=== PATIENT | male | born 1990 ===

== ENCOUNTER 2016-06-17 14:54 | Emergency (ER) | payer MEDICAID ==
[2016-06-17 14:54] VITALS: BMI 25.1
[2016-06-17 15:01] VITALS: BP 109/70; PULSE 86; RESP 18; TEMP 98.6; O2SAT 99
[2016-06-17] MEDS ORDERED: Naproxen 500 MG TAB PO ONE ×2 (15:06→15:09)
--- NOTE | 2016-06-17 15:09 | ED PDOC ---
HPI: General Adult Time Seen by Provider: 06/17/16 15:01 Chief Complaint (Nursing): Flu-like Symptoms Chief Complaint (Provider): Flu like symptoms History Per: Patient Additional Complaint(s): Pt. states since yesterday pt. has had cough, sore throat, and bodyaches. Has been taking Advil (last dose at 1200 yesterday). Pt. also took a muscle relaxant from his sister (pt. does not know the name). Denies fever, sick contacts, recent travel, SOB, chest pain, hemoptysis, abdominal pain. Past Medical History Reviewed: Historical Data, Nursing Documentation, Vital Signs Vital Signs: Last Vital Signs Temp 98.6 F 06/17/16 14:58 Pulse 86 06/17/16 14:58 Resp 18 06/17/16 14:58 BP 109/70 06/17/16 14:58 Pulse Ox 99 06/17/16 15:10 - Medical History PMH: Asthma Denies: Diabetes, Hepatitis, HIV, HTN, Seizures, Sexually Transmitted Disease - Family History Family History: States: No Known Family Hx - Immunization History Hx Tetanus Toxoid Vaccination: No Hx Influenza Vaccination: No Hx Pneumococcal Vaccination: No - Home Medications Home Medications: Ambulatory Orders Medication Instructions Recorded Benzonatate [Tessalon Perle] 100 mg PO Q8 PRN #30 capsule 06/17/16 Naproxen [Naprosyn] 500 mg PO BID PRN #30 tab 06/17/16 - Allergies Allergies/Adverse Reactions: Allergies Allergy/AdvReac Type Severity Reaction Status Date / Time No Known Allergies Allergy Verified 06/16/16 21:40 Review of Systems ROS Statement: Except As Marked, All Systems Reviewed And Found Negative Constitutional: Positive for: Malaise ENT: Positive for: Throat Pain Respiratory: Positive for: Cough Physical Exam - Reviewed Nursing Documentation Reviewed: Yes Vital Signs Reviewed: Yes - Physical Exam Appears: Positive for: Well, Non-toxic, No Acute Distress Head Exam: Positive for: ATRAUMATIC, NORMAL INSPECTION, NORMOCEPHALIC Skin: Positive for: Normal Color, Warm. Negative for: Rash Eye Exam: Positive for: EOMI, Normal appearance, PERRL ENT: Positive for: TM Is/Are (WNL b/l), Pharyngeal Erythema. Negative for: Tonsillar Exudate, Tonsillar Swelling Neck: Positive for: Normal, Painless ROM Cardiovascular/Chest: Positive for: Regular Rate, Rhythm Respiratory: Positive for: Normal Breath Sounds. Negative for: Rales, Wheezing Gastrointestinal/Abdominal: Positive for: Normal Exam, Soft. Negative for: Tenderness Back: Positive for: Normal Inspection Extremity: Positive for: Normal ROM Neurologic/Psych: Positive for: Alert, Oriented - ECG O2 Sat by Pulse Oximetry: 99 - Progress ED Course And Treament: Rapid flu and rapid strep ordered. Naproxen PO given. Rapid strep and rapid flu: negative. Disposition - Clinical Impression Clinical Impression: Upper respiratory infection - Patient ED Disposition Is Patient to be Admitted: No - Disposition Referrals: [facility] [Outside] Disposition: Routine/Home Disposition Time: 16:12 Condition: STABLE Additional Instructions: Drink plenty of fluids. Rest. Prescriptions: Naproxen [Naprosyn] 500 mg PO BID PRN #30 tab PRN Reason: Pain Benzonatate [Tessalon Perle] 100 mg PO Q8 PRN #30 capsule PRN Reason: Cough Instructions: Upper Respiratory Infection (ED)
== END 2016-06-17 16:27 | disposition home or self-care (01) ==
LOC: H.ER 14:54
DX: J06.9 Acute upper respiratory infection, unspecified (principal); J02.9 Acute pharyngitis, unspecified; R05 Cough; J45.909 Unspecified asthma, uncomplicated

== ENCOUNTER 2017-02-27 07:20 | Emergency (ER) | payer OTHER ==
[2017-02-27 07:22] VITALS: BMI 30.4
[2017-02-27 07:23] VITALS: BP 145/90; PULSE 99; RESP 20; TEMP 96.5; O2SAT 99
--- NOTE | 2017-02-27 07:54 | ED PDOC ---
HPI: Psych/Substance Abuse Time Seen by Provider: 02/27/17 07:42 Chief Complaint (Nursing): Alcohol Ingestion Chief Complaint (Provider): Alcohol Ingestion ED Caveat: Intoxicated History Per: Patient History/Exam Limitations: intoxication Suicide/Self Injury Attempted (Context): None Modifying Factor(s): Alcohol Additional Complaint(s): 26 year old male brought in by EMS and brought to ED for alcohol intoxication. EMS states patient called for an ambulance for vomiting after a night of drinking. Upon ED arrival vomiting has resolved and patient is sleeping. PCP: Unknown Past Medical History Reviewed: Historical Data, Nursing Documentation, Vital Signs Vital Signs: Last Vital Signs Temp 96.5 F L 02/27/17 07:22 Pulse 99 H 02/27/17 07:22 Resp 20 02/27/17 07:22 BP 145/90 02/27/17 07:22 Pulse Ox 99 02/27/17 07:22 - Medical History PMH: Asthma Denies: Diabetes, Hepatitis, HIV, HTN, Seizures, Sexually Transmitted Disease - Surgical History Surgical History: No Surg Hx - Family History Family History: States: Unknown Family Hx - Social History Alcohol: > 2 Drinks/Day - Immunization History Hx Tetanus Toxoid Vaccination: No Hx Influenza Vaccination: No Hx Pneumococcal Vaccination: No - Home Medications Home Medications: Ambulatory Orders Medication Instructions Recorded Bacitracin 1 apful EXT TID #30 g 02/22/14 Ibuprofen 600 mg PO Q6H PRN #15 tab 02/22/14 Acetaminophen/Butalbital/Caf 1 tab PO TID PRN #20 tab 12/23/16 [Fioricet] Aspirin 325 mg PO PRN PRN 12/23/16 - Allergies Allergies/Adverse Reactions: Allergies Allergy/AdvReac Type Severity Reaction Status Date / Time No Known Allergies Allergy Verified 12/23/16 08:41 Review of Systems ROS Statement: Except As Marked, All Systems Reviewed And Found Negative Physical Exam - Reviewed Nursing Documentation Reviewed: Yes Vital Signs Reviewed: Yes - Physical Exam Appears: Positive for: Well, Non-toxic, No Acute Distress Head Exam: Positive for: ATRAUMATIC, NORMOCEPHALIC Skin: Positive for: Normal Color, Warm, Dry Eye Exam: Positive for: EOMI, Normal appearance, PERRL ENT: Positive for: Normal ENT Inspection Neck: Positive for: Normal, Painless ROM, Supple Cardiovascular/Chest: Positive for: Regular Rate, Rhythm. Negative for: Murmur Respiratory: Positive for: Normal Breath Sounds. Negative for: Respiratory Distress Gastrointestinal/Abdominal: Positive for: Normal Exam, Soft. Negative for: Tenderness Back: Positive for: Normal Inspection Extremity: Positive for: Normal ROM. Negative for: Deformity Neurologic/Psych: Negative for: Alert (sleepy), Oriented - ECG O2 Sat by Pulse Oximetry: 99 (RA) Pulse Ox Interpretation: Normal - Progress Re-evaluation Time: 11:54 Condition: Re-examined, Improved Medical Decision Making Medical Decision Makin Initial impression: alcohol intoxication Initial plan: * Observation Scribe Attestation: Documented by Eden Whitman acting as a scribe for Chaka Hermosillo MD. Scribe Attestation: All medical record entries made by the Scribe were at my direction and personally dictated by me. I have reviewed the chart and agree that the record accurately reflects my personal performance of the history, physical exam, medical decision making, and the department course for this patient. I have also personally directed, reviewed, and agree with the discharge instructions and disposition. Disposition - Clinical Impression Clinical Impression: Alcohol abuse with intoxication - Patient ED Disposition Is Patient to be Admitted: No Doctor Will See Patient In The: Office Counseled Patient/Family Regarding: Studies Performed, Diagnosis, Need For Followup - Disposition Referrals: Parveen Burciaga PA [Primary Care Provider] - Disposition: Routine/Home Disposition Time: :54 Condition: GOOD Instructions: Alcohol Intoxication (DC)
== END 2017-02-27 12:38 | disposition home or self-care (01) ==
LOC: SUPCPDRO 07:20 → H.ER 07:20
DX: F10.129 Alcohol abuse with intoxication, unspecified (principal); J45.909 Unspecified asthma, uncomplicated

== ENCOUNTER 2017-12-04 17:10 | Emergency (ER) | payer OTHER ==
[2017-12-04 17:10] VITALS: BMI 30.4
[2017-12-04 17:27] VITALS: BP 139/89; PULSE 73; RESP 19; TEMP 98.4; O2SAT 97
--- NOTE | 2017-12-04 17:35 | ED PDOC ---
Upper Extremity Pain/Injury Chief Complaint (Provider): Right wrist pain History Per: Patient History/Exam Limitations: no limitations Onset/Duration Of Symptoms: Hrs (today) Current Symptoms Are (Timing): Still Present Additional Complaint(s): Kelvin Gonzalez is a 27 year old male, with no significant past medical history, who presents to the emergency department complaining of right wrist pain s/p trip and fall today. Patient states he initially didn't have pain, he went to to work but pain worsened throughout the day. He took 800mg Motrin for symptoms. He denies any other injuries or medical complaints. PMD: Aly Carr <Emma Ward - Last Filed: 12/04/17 18:36> <Nimisha Johnston - Last Filed: 12/08/17 18:38> Time Seen by Provider: 12/04/17 17:19 Chief Complaint (Nursing): Finger,Hand,&Wrist Past Medical History Reviewed: Historical Data, Nursing Documentation, Vital Signs Vital Signs: Last Vital Signs Temp 98.4 F 12/04/17 17:22 Pulse 73 12/04/17 17:22 Resp 19 12/04/17 17:22 BP 139/89 12/04/17 17:22 Pulse Ox 97 12/04/17 17:22 - Medical History PMH: Asthma Denies: Diabetes, Hepatitis, HIV, HTN, Seizures, Sexually Transmitted Disease - Surgical History Surgical History: No Surg Hx - Family History Family History: States: Unknown Family Hx - Immunization History Hx Tetanus Toxoid Vaccination: No Hx Influenza Vaccination: No Hx Pneumococcal Vaccination: No <Emma Ward - Last Filed: 12/04/17 18:36> Vital Signs: Last Vital Signs Temp 98.4 F 12/04/17 17:22 Pulse 73 12/04/17 17:22 Resp 19 12/04/17 17:22 BP 139/89 12/04/17 17:22 Pulse Ox 97 12/04/17 18:49 <Nimisha Johnston - Last Filed: 12/08/17 18:38> - Home Medications Home Medications: Ambulatory Orders Medication Instructions Recorded RX: Bacitracin 1 apful EXT TID #30 g 02/22/14 RX: Ibuprofen 600 mg PO Q6H PRN #15 tab 02/22/14 Acetaminophen/Butalbital/Caf 1 tab PO TID PRN #20 tab 12/23/16 [Fioricet] RX: Aspirin 325 mg PO PRN PRN 12/23/16 oxyCODONE/Acetaminophen [Percocet 1 ea PO Q6H PRN #15 tab 12/04/17 5/325 mg Tab] - Allergies Allergies/Adverse Reactions: Allergies Allergy/AdvReac Type Severity Reaction Status Date / Time No Known Allergies Allergy Verified 12/23/16 08:41 Review of Systems ROS Statement: Except As Marked, All Systems Reviewed And Found Negative Musculoskeletal: Positive for: Hand Pain (right wrist pain) <Emma Ward - Last Filed: 12/04/17 18:36> Physical Exam - Reviewed Nursing Documentation Reviewed: Yes Vital Signs Reviewed: Yes - Physical Exam Appears: Positive for: No Acute Distress Head Exam: Positive for: ATRAUMATIC, NORMOCEPHALIC Skin: Positive for: Normal Color, Warm, Dry Eye Exam: Positive for: Normal appearance Neck: Positive for: Painless ROM Respiratory: Negative for: Respiratory Distress Extremity: Positive for: Normal ROM (upper extremities). Negative for: Tenderness (No point tenderness to right wrist), Deformity (no bony deformity to right wrist), Swelling Neurologic/Psych: Positive for: Alert, Oriented, Gait (steady) <Emma Ward - Last Filed: 12/04/17 18:36> - ECG O2 Sat by Pulse Oximetry: 97 (RA) Pulse Ox Interpretation: Normal <Emma Ward Praneeth - Last Filed: 12/04/17 18:36> Medical Decision Making Medical Decision Making: Time: 17:19 Initial Impression: Wrist joint pain Initial Plan: --Tylenol 325 mg tab 650 mg PO --Hand right 3 views [RAD] --Wrist, right 3 views [RAD] 18:07 Wrist X-Ray FINDINGS: BONES: Nondisplaced scaphoid waist fracture. JOINTS: Widened scapholunate interval. SOFT TISSUES: Circumferential wrist soft tissue swelling. OTHER FINDINGS: None. IMPRESSION: Nondisplaced scaphoid waist fracture. Widened scapholunate interval compatible with ligamentous injury. MRI of the wrist can be obtained for further evaluation as clinically warranted. 18:07 Hand X-Ray FINDINGS: BONES: Nondisplaced scaphoid waist fracture. JOINTS: Widened scapholunate interval. SOFT TISSUES: Circumferential wrist soft tissue swelling. OTHER FINDINGS: None. IMPRESSION: Nondisplaced scaphoid waist fracture. Widened scapholunate interval compatible with ligamentous injury. MRI of the wrist can be obtained for further evaluation as clinically warranted. Scribe Attestation: Documented by Chicho Luis, acting as a scribe for Emma Ward PA-C Provider Scribe Attestation: All medical record entries made by the Scribe were at my direction and personally dictated by me. I have reviewed the chart and agree that the record accurately reflects my personal performance of the history, physical exam, medical decision making, and the department course for this patient. I have also personally directed, reviewed, and agree with the discharge instructions and disposition. <Emma Ward - Last Filed: 12/04/17 18:36> Disposition - Patient ED Disposition Is Patient to be Admitted: No - Disposition Disposition: Routine/Home Disposition Time: 18:36 <Emma Ward - Last Filed: 12/04/17 18:36> <Nimisha Johnston - Last Filed: 12/08/17 18:38> - Clinical Impression Clinical Impression: Scaphoid fracture - Disposition Referrals: Aly Carr MD [Primary Care Provider] - Pankaj Andrews MD [Medical Doctor] - Condition: STABLE Prescriptions: oxyCODONE/Acetaminophen [Percocet 5/325 mg Tab] 1 ea PO Q6H PRN #15 tab PRN Reason: Pain, Severe (8-10) Instructions: Wrist Fracture (DC) Forms: [employer] ([place]) Addendum Addendum: 12/08/17 18:38 reviewed chart and agree with PA assessment. <Nimisha Johnston - Last Filed: 12/08/17 18:38>
--- NOTE | 2017-12-04 18:10 | RAD ---
Date of service: 12/04/2017 PROCEDURE: Right Wrist Radiographs Right hand radiographs. HISTORY: pain, FOOSH COMPARISON: None. FINDINGS: BONES: Nondisplaced scaphoid waist fracture. JOINTS: Widened scapholunate interval. SOFT TISSUES: Circumferential wrist soft tissue swelling. OTHER FINDINGS: None. IMPRESSION: Nondisplaced scaphoid waist fracture. Widened scapholunate interval compatible with ligamentous injury. MRI of the wrist can be obtained for further evaluation as clinically warranted.
== END 2017-12-04 19:01 | disposition home or self-care (01) ==
LOC: H.ER 17:10 → SUPCPDRO 17:10 → H.ER 19:01
DX: S62.001A Unspecified fracture of navicular [scaphoid] bone of right wrist, initial encounter for closed fracture (principal); W19.XXXA Unspecified fall, initial encounter; Y92.89 Other specified places as the place of occurrence of the external cause

== ENCOUNTER 2018-05-08 00:56 | Emergency (ER) | payer SELFPAY ==
[2018-05-08 01:16] VITALS: BMI 33.9
[2018-05-08 01:22] VITALS: RESP 18
--- NOTE | 2018-05-08 02:25 | ED PDOC ---
HPI: Influenza Time Seen by Provider: 05/08/18 01:00 Chief Complaint: Cough, Cold, Congestion Chief Complaint (Provider): Fever History Per: Patient Exam Limitations: no limitations Symptoms include: fever, bodyaches. denies: vomiting, diarrhea Additional complaint(s):: 27 y/o male presents to the ED complaining of fever and body aches for x1 day. Patient denies taking his flu shot. He also reports having sore throat and chills. Patient denies vomiting or diarrhea. No other medical complaints. Patient states he hasn't seen his PMD in a long time. PMD: Aly Reese Past Medical History Reviewed: Historical Data, Nursing Documentation, Vital Signs Vital Signs: Last Vital Signs Temp 100.8 F H 05/08/18 01:16 Pulse 81 05/08/18 01:16 Resp 18 05/08/18 01:16 BP 146/96 H 05/08/18 01:16 Pulse Ox 98 05/08/18 01:16 - Medical History PMH: Asthma Denies: Diabetes, Hepatitis, HIV, HTN, Seizures, Sexually Transmitted Disease - Surgical History Surgical History: No Surg Hx - Family History Family History: States: Unknown Family Hx - Social History Current smoker - smoking cessation education provided: Yes Alcohol: > 2 Drinks/Day - Immunization History Hx Tetanus Toxoid Vaccination: No Hx Influenza Vaccination: No Hx Pneumococcal Vaccination: No - Home Medications Home Medications: Ambulatory Orders Medication Instructions Recorded Bacitracin 1 apful EXT TID #30 g 02/22/14 Ibuprofen 600 mg PO Q6H PRN #15 tab 02/22/14 Acetaminophen/Butalbital/Caf 1 tab PO TID PRN #20 tab 12/23/16 [Fioricet] Aspirin 325 mg PO PRN PRN 12/23/16 oxyCODONE/Acetaminophen [Percocet 1 ea PO Q6H PRN #15 tab 12/04/17 5/325 mg Tab] Oseltamivir Cap [Tamiflu] 75 mg PO BID #10 cap 05/08/18 - Allergies Allergies/Adverse Reactions: Allergies Allergy/AdvReac Type Severity Reaction Status Date / Time No Known Allergies Allergy Verified 05/08/18 01:16 Review of Systems ROS Statement: Except As Marked, All Systems Reviewed And Found Negative Constitutional: Positive for: Fever, Chills ENT: Positive for: Throat Pain Gastrointestinal: Negative for: Vomiting, Diarrhea Physical Exam - Reviewed Nursing Documentation Reviewed: Yes Vital Signs Reviewed: Yes - Physical Exam Appears: Positive for: Well, Non-toxic, No Acute Distress Head Exam: Positive for: ATRAUMATIC, NORMAL INSPECTION, NORMOCEPHALIC Skin: Positive for: Normal Color, Warm, DRY Eye Exam: Positive for: EOMI, Normal appearance, PERRL ENT: Positive for: Normal ENT Inspection Neck: Positive for: Normal, Painless ROM Cardiovascular/Chest: Positive for: Regular Rate, Rhythm. Negative for: Murmur Respiratory: Positive for: Normal Breath Sounds. Negative for: Respiratory Distress Gastrointestinal/Abdominal: Positive for: Normal Exam, Soft. Negative for: Tenderness Back: Positive for: Normal Inspection Extremity: Positive for: Normal ROM. Negative for: Pedal Edema, Deformity Neurologic/Psych: Positive for: Alert, Oriented. Negative for: Motor/Sensory Deficits Medical Decision Making Medical Decision Making: Time: 01:53 Initial Impression: Fever ro flu and strep Initial Plan: * Motrin 600 mg * Influenza A B * Rapid strep 03:05 Patient's flu was negative but still giving Tamiflu for symptoms. explained results to pt.. he states he feels improved at this time. . Upon provider reevaluation patient is feeling better, is medically stable, and requires no further treatment in the ED at this time. Patient will be discharged with Rx for Tamiflu Counseling was provided and all questions were answered regarding diagnosis and need for follow up with Clinic. There is agreement to discharge plan. Return if symptoms persist or worsen. Scribe Attestation: Documented by Fred Boston acting as a scribe for Go Trinh MD. Provider Scribe Attestation: :All medical record entries made by the Scribe were at my direction and per sonally dictated by me. I have reviewed the chart and agree that the record accurately reflects my personal performance of the history, physical exam, medical decision making, and the department course for this patient. I have also personally directed, reviewed, and agree with the discharge instructions and disposition. - ECG O2 Sat by Pulse Oximetry: 98 Disposition - Clinical Impression Clinical Impression: Influenza-like symptoms - Patient ED Disposition Is Patient to be Admitted: No Counseled Patient/Family Regarding: Studies Performed, Diagnosis, Need For Followup - Disposition Disposition: Routine/Home Disposition Time: 03:05 Condition: IMPROVED Additional Instructions: follow up w dr reese return to the ED with any worsening or concerning symptoms Prescriptions: Oseltamivir Cap [Tamiflu] 75 mg PO BID #10 cap Instructions: Flu, Adult (DC) Forms: [employer] (Czech), [facility] ED School/Work Excuse
[2018-05-08 03:10] VITALS: BP 130/86; PULSE 76; TEMP 100.1
[2018-05-08 03:25] VITALS: O2SAT 98
== END 2018-05-08 03:40 | disposition home or self-care (01) ==
LOC: H.ER 00:56
DX: J11.1 Influenza due to unidentified influenza virus with other respiratory manifestations (principal)

== ENCOUNTER 2018-06-22 11:38 | Emergency (ER) | payer SELFPAY ==
[2018-06-22 11:53] VITALS: PULSE 80; RESP 18; TEMP 98.6
[2018-06-22 11:54] VITALS: BMI 29.0
[2018-06-22 13:28] LABS: BASO % 0.3 % (0.0-2.0); EOS % 0.1 % (0.0-4.0); HEMOGLOBIN 15.8 g/dL (12.0-18.0); LYMPH # 0.4 K/uL (1.0-4.3); LYMPH % 6.9 % (20.0-40.0); MEAN CELL VOLUME 89.2 fl (80.0-94.0); MEAN CORPUSCULAR HEMOGLOBIN 30.2 pg (27.0-31.0); MEAN CORPUSCULAR HGB CONC 33.9 g/dL (33.0-37.0); MEAN PLATELET VOLUME 8.2 fl (7.2-11.7); MONO # 0.5 K/uL (0.0-0.8); MONO % 8.3 % (0.0-10.0); NEUT # 5.3 K/uL (1.8-7.0); NEUT % 84.4 % (50.0-75.0); NRBC % 0.1 % (0.0-0.0); PLATELET COUNT 190 K/uL (130-400); RBC 5.23 Mil/uL (4.40-5.90); RED CELL DISTRIBUTION WIDTH 13.4 % (11.5-14.5); WHITE BLOOD COUNT 6.3 K/uL (4.8-10.8)
[2018-06-22 13:40] LABS: URINE BACTERIA RARE (<OCC); URINE BILIRUBIN SMALL (NEGATIVE); URINE BLOOD NEGATIVE (NEGATIVE); URINE CLARITY SLIGHTY-CLOUDY (Clear); URINE COLOR AMBER (YELLOW); URINE GLUCOSE (UA) NEG (NEGATIVE); URINE LEUKOCYTE ESTERASE NEG Leu/uL (Negative); URINE PROTEIN 100 mg/dL (NEGATIVE)
[2018-06-22 13:41] LABS: ALB/GLOB RATIO 1.4 (1.0-2.1); ALBUMIN 4.4 g/dL (3.5-5.0); ALT/SGPT 65 U/L (21-72); AST/SGOT 84 U/L (17-59); BLOOD UREA NITROGEN 15 mg/dl (9-20); CALCIUM 8.7 mg/dL (8.4-10.2); GFR NON-AFRICAN AMERICAN > 60
--- NOTE | 2018-06-22 14:01 | RAD ---
Date of service: 06/22/2018 HISTORY: Chest pain COMPARISON: 11/06/2012. TECHNIQUE: Chest PA and lateral FINDINGS: LINES AND TUBES: None. LUNG AND PLEURA: The lungs are well inflated and clear. No pleural effusion or pneumothorax. HEART AND MEDIASTINUM: The heart is not enlarged. No aortic atherosclerotic calcifications present. The hilar and mediastinal contours are within normal limits. SKELETAL STRUCTURES: The bony structures are within normal limits for the patient's age. VISUALIZED UPPER ABDOMEN: Normal. OTHER FINDINGS: None. IMPRESSION: No active pulmonary disease.
--- NOTE | 2018-06-22 14:21 | ED PDOC ---
HPI: Abdomen Time Seen by Provider: 06/22/18 12:00 Chief Complaint (Nursing): Abdominal Pain Chief Complaint (Provider): Abdominal Pain History Per: Patient History/Exam Limitations: no limitations Onset/Duration Of Symptoms: Hrs Additional Complaint(s): 27 y/o male presents to the ED due to mid sternal chest pain since last night. Patient states it is not affected by movement or breathing without exacerbation. He also reports RLQ intermittent abdominal pain with body aches. Patient states he plays basketball and smokes cigars and drinks occasionally. Patient denies fever, chills, or any cough. PMD: Dr. Carr Past Medical History Reviewed: Historical Data, Nursing Documentation, Vital Signs Vital Signs: Last Vital Signs Temp 98.6 F 06/22/18 11:52 Pulse 80 06/22/18 11:52 Resp 18 06/22/18 11:52 BP 138/77 06/22/18 11:52 Pulse Ox 97 06/22/18 11:52 - Medical History PMH: Asthma Denies: Diabetes, Hepatitis, HIV, HTN, Seizures, Sexually Transmitted Disease - Surgical History Surgical History: No Surg Hx - Family History Family History: States: No Known Family Hx, Unknown Family Hx - Social History Current smoker - smoking cessation education provided: Yes Alcohol: Occasional - Immunization History Hx Tetanus Toxoid Vaccination: No Hx Influenza Vaccination: No Hx Pneumococcal Vaccination: No - Home Medications Home Medications: Ambulatory Orders Medication Instructions Recorded Bacitracin 1 apful EXT TID #30 g 02/22/14 Ibuprofen 600 mg PO Q6H PRN #15 tab 02/22/14 Acetaminophen/Butalbital/Caf 1 tab PO TID PRN #20 tab 12/23/16 [Fioricet] Aspirin 325 mg PO PRN PRN 12/23/16 oxyCODONE/Acetaminophen [Percocet 1 ea PO Q6H PRN #15 tab 12/04/17 5/325 mg Tab] Oseltamivir Cap [Tamiflu] 75 mg PO BID #10 cap 05/08/18 - Allergies Allergies/Adverse Reactions: Allergies Allergy/AdvReac Type Severity Reaction Status Date / Time No Known Allergies Allergy Verified 05/08/18 01:16 Review of Systems ROS Statement: Except As Marked, All Systems Reviewed And Found Negative Constitutional: Negative for: Fever, Chills Cardiovascular: Positive for: Chest Pain Respiratory: Negative for: Cough Gastrointestinal: Positive for: Abdominal Pain (LLQ) Physical Exam - Reviewed Nursing Documentation Reviewed: Yes Vital Signs Reviewed: Yes - Physical Exam Appears: Positive for: Well, Non-toxic, No Acute Distress Head Exam: Positive for: ATRAUMATIC, NORMOCEPHALIC Skin: Positive for: Normal Color, Warm, Dry Eye Exam: Positive for: EOMI, Normal appearance, PERRL ENT: Positive for: Normal ENT Inspection Neck: Positive for: Normal, Painless ROM, Supple Cardiovascular/Chest: Positive for: Regular Rate, Rhythm. Negative for: Murmur Respiratory: Positive for: Normal Breath Sounds. Negative for: Respiratory Distress Gastrointestinal/Abdominal: Positive for: Normal Exam, Bowel Sounds, Soft, Tenderness (RLQ) Back: Positive for: Normal Inspection. Negative for: L CVA Tenderness, R CVA Tenderness Extremity: Positive for: Normal ROM Neurological/Psych: Positive for: Awake, Alert, Normal Tone, Oriented (X3). Negative for: Motor/Sensory Deficits - Laboratory Results Result Diagrams: 06/22/18 13:00 06/22/18 13:00 Lab Results: Troponin I < 0.0120 ng/mL (0.00-0.120) 06/22/18 13:00 Total Bilirubin 2.1 mg/dl (0.2-1.3) H 06/22/18 13:00 AST 84 U/L (17-59) H 06/22/18 13:00 ALT 65 U/L (21-72) 06/22/18 13:00 Alkaline Phosphatase 81 U/L (38-126) 06/22/18 13:00 Total Protein 7.5 G/DL (6.3-8.2) 06/22/18 13:00 Albumin 4.4 g/dL (3.5-5.0) 06/22/18 13:00 Globulin 3.1 gm/dL (2.2-3.9) 06/22/18 13:00 Albumin/Globulin Ratio 1.4 (1.0-2.1) 06/22/18 13:00 Urine Color Fariba (YELLOW) 06/22/18 13:00 Urine Clarity Slighty-cloudy (Clear) 06/22/18 13:00 Urine pH 6.0 (5.0-8.0) 06/22/18 13:00 Ur Specific [employer] 1.033 (1.003-1.030) H 06/22/18 13:00 Urine Protein 100 mg/dL (NEGATIVE) 06/22/18 13:00 Urine Glucose (UA) Neg mg/dL (NEGATIVE) 06/22/18 13:00 Urine Ketones Negative mg/dL (NEGATIVE) 06/22/18 13:00 Urine Blood Negative (NEGATIVE) 06/22/18 13:00 Urine Nitrate Negative (NEGATIVE) 06/22/18 13:00 Urine Bilirubin Small (NEGATIVE) 06/22/18 13:00 Urine Urobilinogen 4.0 mg/dL (0.2-1.0) 06/22/18 13:00 Ur Leukocyte Esterase Neg Sam/uL (Negative) 06/22/18 13:00 Urine RBC (Auto) 3 /hpf (0-3) 06/22/18 13:00 Urine Microscopic WBC 2 /hpf (0-5) 06/22/18 13:00 Urine Bacteria Rare (<OCC) 06/22/18 13:00 - ECG O2 Sat by Pulse Oximetry: 97 Medical Decision Making Medical Decision Making: Time:1257 Initial Impression: LLQ abdominal pain rule out diverticulitis Initial Plan: -CT -CMP -Troponin -CBC -Chest x-ray -Urine culture -Urinalysis 13:57 Chest XRAY: IMPRESSION: No active pulmonary disease. 15:16 Abdomen/ Pelvis CT IMPRESSION: Fluid-filled mildly dilated mid and distal small bowel loops may represent acute nonspecific infectious/inflammatory enteritis. No evidence for bowel obstruction. Mild splenomegaly. 17:21: Only AST is elevated. EKG shows normal sinus rhythm at 71 beats per minute. pt aware of cxr and CT results pt statesfeels better, requesting tray of food pt instructed outpt follwo up Scribe Attestation: Documented by Carol Carrasco, acting as a scribe for Go Trinh Provider Scribe Attestation: All medical record entries made by the Scribe were at my direction and personally dictated by me. I have reviewed the chart and agree that the record accurately reflects my personal performance of the history, physical exam, medical decision making, and the department course for this patient. I have also personally directed, reviewed, and agree with the discharge instructions and disposition. Scribe Attestation: Documented by Sal Shelton, acting as a scribe for Go Trinh MD Provider Scribe Attestation: All medical record entries made by the Scribe were at my direction and person ally dictated by me. I have reviewed the chart and agree that the record accurately reflects my personal performance of the history, physical exam, medical decision making, and the department course for this patient. I have also personally directed, reviewed, and agree with the discharge instructions and disposition Disposition - Clinical Impression Clinical Impression: Enteritis - Patient ED Disposition Is Patient to be Admitted: No Counseled Patient/Family Regarding: Studies Performed, Diagnosis, Need For Followup - Disposition Disposition: Routine/Home Disposition Time: 17:21 Condition: IMPROVED Additional Instructions: follow up with your doctor dr carr in 1-2 days return to the ED with any worsening or concerning symptoms Instructions: Viral Gastroenteritis, Adult (DC) Forms: [employer] (Lao)
[2018-06-22 15:01] LABS: BANDS 2 % (0-2); LYMPHOCYTE 6 % (20-50); MONOCYTE 9 % (0-10); NEUTROPHIL 83 % (42-75); TOTAL CELLS COUNTED 100
[2018-06-22 15:02] LABS: PLATELET ESTIMATE NORMAL (NORMAL)
--- NOTE | 2018-06-22 15:20 | CT ---
Date of service: 06/22/2018 PROCEDURE: CT Abdomen and Pelvis without intravenous contrast HISTORY: Abdominal pain COMPARISON: None. TECHNIQUE: CT scan of the abdomen and pelvis was performed without administration of intravenous contrast. Oral contrast was not administered. Coronal and sagittal reformatted images were obtained. Radiation dose: Total exam DLP = 800.83 mGy-cm. This CT exam was performed using one or more of the following dose reduction techniques: Automated exposure control, adjustment of the mA and/or kV according to patient size, and/or use of iterative reconstruction technique. FINDINGS: LOWER THORAX: The visualized lungs are clear. LIVER: Normal in size. No gross lesion or ductal dilatation. GALLBLADDER AND BILE DUCTS: Well distended. No calcified gallstones. No common bile duct dilatation. PANCREAS: Normal in size. No gross lesion or ductal dilatation. SPLEEN: Mild splenomegaly. ADRENALS: Normal in size. No discrete nodule. KIDNEYS AND URETERS: Both kidneys are normal in size. No hydronephrosis or nephrolithiasis. VASCULATURE: Normal in caliber. No aortic aneurysm. No aortic atherosclerotic calcification or mural plaque present. BOWEL: Evaluation of the bowel is limited in the absence of oral contrast. The proximal small bowel loops are normal in caliber. There are fluid-filled mildly dilated mid and distal small bowel loops. The colon is normal in size. No bowel dilatation or wall thickening. No bowel obstruction. APPENDIX: Normal appendix. PERITONEUM: No free fluid. No free air. LYMPH NODES: No enlarged lymph nodes. BLADDER: Well distended and normal in appearance. REPRODUCTIVE: The prostate gland is normal in size. BONES: No acute fracture. Within normal limits for the patient's age. OTHER FINDINGS: None. IMPRESSION: Fluid-filled mildly dilated mid and distal small bowel loops may represent acute nonspecific infectious/inflammatory enteritis. No evidence for bowel obstruction. Mild splenomegaly.
[2018-06-22 18:26] VITALS: BP 128/80
[2018-06-22 18:31] VITALS: O2SAT 97
== END 2018-06-22 18:26 | disposition home or self-care (01) ==
LOC: H.ER 11:38
DX: K52.9 Noninfective gastroenteritis and colitis, unspecified (principal); F17.200 Nicotine dependence, unspecified, uncomplicated